=== PATIENT | male | born 1990 | race Caucasian/White ===

== ENCOUNTER 2021-01-21 14:21 | Emergency (ER) | payer OTHER ==
[~2021-01-21] VITALS: Ht 170.2 cm; Wt 76.0 kg
[2021-01-21 14:22] VITALS: BP 121/79
[2021-01-21] MEDS ORDERED: ACETAMINOPHEN WITH CODEINE 300/30MG TABLET PO ONE (14:45)
[2021-01-21] MEDS ORDERED: TETANUS, DIPHTHERIA, PERTUSSIS VAC/PF 0.5ML (>10YR OLD) IM ONE (14:45)
[2021-01-21] MEDS ORDERED: BACITRACIN ZINC OINT UDPKT TOP ONE (14:45)
[2021-01-21] MEDS ORDERED: LIDOCAINE HCL/PF 1% 10 MG/ML 5ML VIAL INFIL ONE (14:45)
[2021-01-21] MEDS ORDERED: LIDOCAINE HCL 1% 20ML VIAL (Pyxis) INJ INFIL ONE (15:00)
[2021-01-21] MEDS ORDERED: LIDOCAINE HCL/PF 1% 10 MG/ML 5ML VIAL INFIL NR (15:15)
[2021-01-21] MEDS ORDERED: BACITRACIN ZINC OINT UDPKT TOP NR (15:15)
[2021-01-21] MEDS ORDERED: ACETAMINOPHEN WITH CODEINE 300/30MG TABLET PO NR (15:15)
[2021-01-21] MEDS ORDERED: ONDANSETRON 4MG ODT PO NR (15:45)
[2021-01-21] MEDS ORDERED: BO1 TP (15:51)
== END 2021-01-21 17:00 | disposition home or self-care (01) ==
LOC: ER 14:21
DX: S61.012A Laceration without foreign body of left thumb without damage to nail, initial encounter (principal); R11.10 Vomiting, unspecified; W26.0XXA Contact with knife, initial encounter; Y93.89 Activity, other specified; Y92.89 Other specified places as the place of occurrence of the external cause
CPT/HCPCS: 12002; 90471; 90715; 99284; J3490; Q0162

== ENCOUNTER 2021-01-24 12:58 | Emergency (ER) | payer OTHER ==
[~2021-01-24] VITALS: Ht 172.7 cm; Wt 82.0 kg
[~2021-01-24 12:58] MED LIST: BO1 TP
[2021-01-24 13:15] VITALS: BP 108/78
== END 2021-01-24 14:28 | disposition home or self-care (01) ==
LOC: ER 12:58
DX: Z48.00 Encounter for change or removal of nonsurgical wound dressing (principal)
CPT/HCPCS: 99281

== ENCOUNTER 2021-02-06 14:34 | Emergency (ER) | payer OTHER ==
[~2021-02-06] VITALS: Ht 172.7 cm; Wt 82.0 kg
[2021-02-06 14:40] VITALS: BP 149/68
== END 2021-02-06 14:56 | disposition home or self-care (01) ==
LOC: ER 14:34
DX: Z48.02 Encounter for removal of sutures (principal)
CPT/HCPCS: 99281